=== PATIENT | female | born 1965 | race Caucasian/White ===

== ENCOUNTER 2016-11-07 16:29 | Emergency (ER) | payer OTHER ==
--- NOTE | ~2016-11-07 | CR142 ---
[facility]. [facility] A Service of [facility] & [facility] RADIOLOGY TEXT RESULTS PATIENT: RAYMOND STARR LOCATION: SED : 61 UNIT #: [id number] AGE: [address]: Francisca Thomas APRN SEX: F ORDER DR: [id number] [address] [address] [id number] E MR#: [id number] Acc #: [id number] NAME: RAYMOND STARR : 1965 SEX: F STUDY DATE/TIME: 11/07/2016 17:09 UNIT: SED ROOM: STUDY DESCRIPTION: CR Hand Min 3 Views Rt Attending Physician: Francisca Thomas A.P.R.N. Ordering Physician: Francisca Guzman A.P.R.N. Primary Care Physician: Amy Contreras M.D. MEDICAL IMAGING REPORT This report is preliminary unless electronic signature is present. EXAM Right hand, 11/07/2016. HISTORY 50-year-old female with right hand pain after smashing hand with wood today. COMPARISON None. FINDINGS Three views of the right hand demonstrate no acute fracture or dislocation. No radiopaque foreign bodies. Mild degenerative changes of the olvfudsv-glziasshx-hpgykwehj articulation and first carpometacarpal joint. IMPRESSION 1. No acute fracture or dislocation. No radiopaque foreign bodies. 2. 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 Dictated by... Shaheed Rogers M.D. THIS IS AN ELECTRONICALLY VERIFIED REPORT Shaheed Rogers M.D. at 11/08/2016 8:08 AM [employer] TD: 11/08/2016 05:23 JOB #: [id number] MEDICAL IMAGING REPORT Page 1 of 1
[2016-11-07] MEDS ORDERED: NEURONTIN (16:41)
[2016-11-07] MEDS ORDERED: CELEXA (16:41)
[2016-11-07] MEDS ORDERED: HYDROCODON-ACE1 EAC9 (16:41)
[2016-11-07] MEDS ORDERED: ASPIR-TRIN325 MG (16:42)
[2016-11-07] MEDS ORDERED: DIAZEPAM (16:42)
[2016-11-07] MEDS ORDERED: NASONEX17 GM (16:42)
[2016-11-07] MEDS ORDERED: ALBUTEROL17 GM (16:42)
[2016-11-07] MEDS ORDERED: ESTRACE0.5 MG (16:42)
[2016-11-07] MEDS ORDERED: TOPAMAX (16:42)
[2016-11-07] MEDS ORDERED: PROTONIX (16:42)
[2016-11-07] MEDS ORDERED: DICLOFENAC (16:42)
[2016-11-07] MEDS ORDERED: ANORO ELLIPTA1 EACH (16:42)
== END 2016-11-07 18:30 | disposition home or self-care (01) ==
LOC: SED 16:29
DX: S61.401A Unspecified open wound of right hand, initial encounter (principal); F17.210 Nicotine dependence, cigarettes, uncomplicated; Z88.0 Allergy status to penicillin; Z88.2 Allergy status to sulfonamides; Z88.1 Allergy status to other antibiotic agents; Z88.8 Allergy status to other drugs, medicaments and biological substances; W23.0XXA Caught, crushed, jammed, or pinched between moving objects, initial encounter; Y92.009 Unspecified place in unspecified non-institutional (private) residence as the place of occurrence of the external cause
CPT/HCPCS: 73130; 99283